=== PATIENT | male | born 1975 | race Caucasian/White ===

== ENCOUNTER → 2020-11-25 | Outpatient (CLI) | payer BC ==
--- NOTE | 2020-11-25 13:59 | CT ---
EXAMINATION TYPE: CT abdomen pelvis w con DATE OF EXAM: 11/25/2020 COMPARISON: NONE HISTORY: 45-year-old male K4 2.9 Umbilical hernia without pain. TECHNIQUE: Contiguous axial scanning of the abdomen and pelvis following administration of 100 ml Iso miguel 300 IV contrast. Delayed images through the kidneys and coronal/sagittal reconstructions perform ed. CT DLP: 3167.3 mGycm Automated exposure control for dose reduction was used. FINDINGS: Heart normal size without pericardial effusion. Some strandy right basilar atelectasis. No pleural ef fusion. Liver mildly enlarged at 18.8 cm. No focal lesion or biliary ductal dilatation. Portal venous system is patent. Gallbladder, adrenal glands, right kidney, and pancreas appear within normal limits. Benign 2.6 cm cortical cyst anterior lower pole left kidney. Additional medial midpole right kidney l esion measuring 1 cm, axial image 42 too small for accurate CT characterization, likely additional ti ny cortical cyst. Spleen borderline in size at 13.1 cm. No dilated small bowel, free fluid, or free air. No mesenteric or retroperitoneal lymphadenopathy. Normal appendix. Oral contrast progressed to the rectum. No significant stool burden. No pericolonic inflammatory change. There is a moderate-sized fatty hernia measuring 4.3 cm wide and 4.7 cm craniocaudal. The abdominal w all defect measures 1.4 cm wide. There is some inflammatory fat stranding just deep to the anterior a bdominal wall superior to the neck of the hernia, reference axial image 56 and sagittal image 84. Bladder incompletely distended. Prostate gland is normal size at 3.7 cm wide. Slightly patulous left internal canal. No abnormal fluid collection in the pelvis or pelvic lymphadenopathy. Bones: Tiny sclerotic focus about both hips suggesting small bone islands. Mild degenerative spurring in both hips. Mild degenerative disc disease L5-S1. Some facet arthropathy L5-S1 also noted with mod erate left neural foraminal stenosis at L5-S1. IMPRESSION: A MODERATE SIZED FATTY UMBILICAL HERNIA MEASURING 4.7 X 4.3 CM. THE NECK OF THE HERNIA MEASURES 1.4 C M WIDE. OF NOTE, THERE IS SOME FOCAL FAT STRANDING JUST DEEP TO THE ABDOMINAL WALL, SUPERIOR TO THE N BETH OF THE HERNIA SUGGESTING SOME NONSPECIFIC INFLAMMATION (REFER TO AXIAL IMAGE 56.
== END | disposition home or self-care (01) ==
LOC: RADCTMAIN 11:14
PROVIDERS: ATTEND Family Medicine
DX: K42.9 Umbilical hernia without obstruction or gangrene (principal)
CPT/HCPCS: 74177; Q9967

== ENCOUNTER 2020-12-10 06:19 | Day surgery (SDC) | payer BC ==
[2020-12-09 09:38] VITALS: BMI 45.5
[2020-12-10] MEDS: ACETAMINOPHEN TAB 500 MG TAB PO PRN ×2 (00:45→06:45)
[~2020-12-10 06:19] MED LIST: DEXAMETHASONE SOD PHOSPHATE 4 MG/ML 1 ML VIAL IV ONE; HEPARIN SODIUM,PORCINE 5,000 UNIT/ML 1 ML VIAL SQ PRN; LACTATED RINGERS 1,000 ML IV SCH; LIDOCAINE 1% (10MG/ML) FOR IV START INTRADERMA PRN; ONDANSETRON 4 MG/2 ML VIAL IVP ONE; SCOPOLAMINE 1.5MG/72HR PATCH TRANSDERM ONE; ceFAZolin 3 GM in SODIUM CHLORIDE 0.9% 100 ML IVPB PRN
[2020-12-10] MEDS ORDERED: HYDROmorphone 0.5 MG/0.5 ML SYRINGE IVP PRN (07:00)
[2020-12-10] MEDS ORDERED: LACTATED RINGERS 1,000 ML IV ONE ×2 (07:10→09:33)
[2020-12-10] MEDS ORDERED: fentaNYL (PF) 50 MCG/ML 2 ML AMP IV ONE (07:33)
[2020-12-10] MEDS ORDERED: MIDAZOLAM 2 MG/2 ML VIAL IV ONE (07:33)
[2020-12-10] MEDS ORDERED: ROPIVACAINE 5 MG/ML 30 ML VIAL ONE (08:45)
[2020-12-10] MEDS ORDERED: SUCCINYLCHOLINE CHLORIDE 100 MG/5 ML SYR IV ONE (08:45)
[2020-12-10] MEDS ORDERED: PROPOFOL 10 MG/ML 20 ML VIAL IV ONE (08:45)
[2020-12-10] MEDS ORDERED: DEXAMETHASONE SOD PHOSPHATE 10 MG/ML 1 ML VIAL ONE (08:45)
[2020-12-10] MEDS ORDERED: ROCURONIUM 10 MG/ML (5 ML VIAL) IV ONE (08:45)
[2020-12-10] MEDS ORDERED: NEOSTIGMINE 1 MG/ML 10 ML VIAL ONE (08:45)
[2020-12-10] MEDS ORDERED: GLYCOPYRROLATE 0.2 MG/ML 2 ML VIAL ONE (08:45)
[2020-12-10] MEDS ORDERED: KETAMINE 10 MG/ML 20 ML VIAL ONE (08:45)
[2020-12-10] MEDS ORDERED: MIDAZOLAM 2 MG/2 ML VIAL ONE (08:45)
[2020-12-10] MEDS ORDERED: fentaNYL (PF) 50 MCG/ML 2 ML AMP ONE (08:45)
[2020-12-10] MEDS ORDERED: KETOROLAC 15 MG/ML 1 ML VIAL ONE (08:45)
[2020-12-10] MEDS ORDERED: LIDOCAINE 1% INJ 10MG/ML (20 ML MDV) ONE (08:45)
--- NOTE | 2020-12-10 09:12 | P.ANPRN ---
Procedure Note - Anesthesia - Nerve Block Performed Bilateral Erector Spinae Single Time Out Performed: Yes Date of Procedure: 12/10/20 Procedure Start Time: 07:26 Procedure Stop Time: 07:38 Location of Patient: PreOp Indication: Acute Post-Operative Pain, Dx/Pain Location, Requested by Surgeon Specifically requested for management of pain by : Uriel Espino Sedation Type: Sedate with meaningful contact maintained Preparation: Sterile Prep Position: Prone Catheter: None Needle Types: [employer] Needle Gauge: 21 Ultrasound used to visualize needle placement: Yes Ultrasound used to observe medication spread: Yes Injectate: 0.5% Ropivacaine (see comment for volume) Blood Aspirated: No Pain Paresthesia on Injection Noted: No Resistance on Injection: Normal Image Stored and Saved: Yes Events: Uneventful and Well Tolerated (60cc 0.25% Ropivacaine)
[2020-12-10] MEDS ORDERED: BUPIVACAIN-EPI 0.5%-1:200,000 30 ML VIAL SQ ONE (09:22)
[2020-12-10 10:05] VITALS: TEMP 97.6
[2020-12-10 10:59] VITALS: RESP 16
--- NOTE | 2020-12-10 11:11 | P.GSHP ---
History of Present Illness H&P Date: 12/10/20 Chief Complaint: Incarcerated umbilical hernia A 45-year-old male who presents today for laparoscopic robotic-assisted repair of incarcerated umbilical hernia. Patient rough rice tender mass at his umbilicus. Past Medical History Past Medical History: No Reported History History of Any Multi-Drug Resistant Organisms: None Reported Past Surgical History: Orthopedic Surgery Additional Past Surgical History / Comment(s): Right ankle surgery X2. Past Anesthesia/Blood Transfusion Reactions: No Reported Reaction Past Psychological History: No Psychological Hx Reported Smoking Status: Former smoker Past Alcohol Use History: None Reported Additional Past Alcohol Use History / Comment(s): Quit smoking 2 weeks ago, smoked for 30 yrs, 2 PPD. Past Drug Use History: None Reported - Past Family History Mother Family Medical History: No Reported History Medications and Allergies Home Medications Medication Instructions Recorded Confirmed Type Chantix(Unknown Dose) 1 tab PO BID 12/09/20 12/09/20 History Acetaminophen Tab [Tylenol] 650 mg PO Q6H #30 tab 12/10/20 Rx Docusate [Colace] 100 mg PO BID #20 capsule 12/10/20 Rx Ibuprofen [Motrin] 600 mg PO Q6HR PRN #40 tab 12/10/20 Rx oxyCODONE HCL [OxyIR] 5 mg PO Q4H PRN 3 Days #18 tab 12/10/20 Rx Allergies Allergy/AdvReac Type Severity Reaction Status Date / Time No Known Allergies Allergy Verified 12/09/20 09:24 Surgical - Exam Vital Signs Temp Pulse Resp BP Pulse Ox 98.1 F 92 20 134/81 95 12/10/20 06:50 12/10/20 06:50 12/10/20 06:50 12/10/20 06:50 12/10/20 06:50 - General well developed, well nourished, no distress - Eyes PERRL - ENT normal pinna - Neck no masses - Respiratory normal expansion - Cardiovascular Rhythm: regular - Abdomen Abdomen: soft, non tender Hernia: umbilical (Incarcerated) Assessment and Plan Plan: incarcerated umbilical hernia. We'll perform laparoscopic robotic-assisted repair.
--- NOTE | 2020-12-10 11:13 | P.OP ---
Date of Procedure: 12/10/20 Preoperative Diagnosis: Incarcerated umbilical hernia Postoperative Diagnosis: Incarcerated umbilical hernia Procedure(s) Performed: Laparoscopic robotic-assisted repair of incarcerated umbilical hernia repair partial omentectomy Anesthesia: SHERICE Surgeon: Uriel Espino Estimated Blood Loss (ml): 5 Pathology: other (Omentum) Condition: stable Disposition: PACU Description of Procedure: The patient was placed on the operating table in the supine position. He received general anesthesia. His abdomen was prepped and draped usual fashion. Using a 5 mm optical trocar under direct visualization the peritoneal cavity was entered in the left upper quadrant. The abdomen was then insufflated. The laparoscope was placed back into the perineal cavity. Next a 8 mm robotic trocar was placed in the left lower quadrant and a 12 mm robotic trocar was placed in the left lateral position. The original 5 mm trocar was exchanged for a 8 mm robotic trocar. The patient's placed in the left side up position. And the patient was undocked the robot. The umbilical hernia was visualized. Using hook cautery the peritoneum over the umbilical hernia was excised. The incarcerated omentum was transected and sent to pathology. The fascial opening was repaired using 0V LOC suture. Next a piece of 11 cm round ventral light ST mesh was placed into the. Cavity and secured with 2 OV lock suture. The patient was undocked the robot. The needles were retrieved. The fascia of the 12 mm trocar site was closed with 0 Ethibond suture. Skin was closed interrupted 3-0 Monocryl suture. Dermabond dressings was applied. Patient top procedure well and was sent to recovery room stable condition.
[2020-12-10 11:51] VITALS: BP 107/69; PULSE 85
== END 2020-12-10 12:24 | disposition home or self-care (01) ==
LOC: OR 06:19
PROVIDERS: ATTEND Surgery
DX: K42.0 Umbilical hernia with obstruction, without gangrene (principal); F17.210 Nicotine dependence, cigarettes, uncomplicated; E66.01 Morbid (severe) obesity due to excess calories; Z68.42 Body mass index [BMI] 45.0-49.9, adult; Z98.890 Other specified postprocedural states; Z79.899 Other long term (current) drug therapy
CPT/HCPCS: 49653; 64999; 76942; 88302; C1781; J2250; J1100 ×2; J2710; J0690; J2405; J2001; J3010; J2795; J1885; J0330; J2704

== ENCOUNTER 2021-01-03 16:50 | Emergency (ER) | payer BC ==
[2021-01-03 17:05] VITALS: BP 137/86; PULSE 111; RESP 18; TEMP 98.6
[2021-01-03] MEDS ORDERED: LIDOCAINE 1% INJ 10MG/ML (20 ML MDV) SQ ONE (17:10)
[2021-01-03] MEDS ORDERED: DIPH,PERTUS(ACELL)TETVAC-LF 0.5 ML VIAL IM ONE (17:20)
[2021-01-03] MEDS ORDERED: BACITRACIN OINT 1 EACH PACKET TOPICAL ONE (17:36)
--- NOTE | 2021-01-03 17:38 | ED ---
Wound/Laceration HPI - General Chief Complaint: Wound/Laceration Stated Complaint: Lt Index Finger Injury Time Seen by Provider: 01/03/21 17:10 Source: patient, RN notes reviewed Mode of arrival: ambulatory Limitations: no limitations - History of Present Illness Initial Comments: 45-year-old male presents emergency Department complaining of right hand l aceration. Patient states she is trying to cut a zip tie states that he cut his right hand by the second digit. Patient has full range of motion no paresthesias is unsure when his last tetanus was. Patient offers no other complaints. - Related Data Home Medications Medication Instructions Recorded Confirmed Chantix(Unknown Dose) 1 tab PO BID 12/09/20 12/09/20 Previous Rx's Medication Instructions Recorded Acetaminophen Tab [Tylenol] 650 mg PO Q6H #30 tab 12/10/20 Docusate [Colace] 100 mg PO BID #20 capsule 12/10/20 Ibuprofen [Motrin] 600 mg PO Q6HR PRN #40 tab 12/10/20 oxyCODONE HCL [OxyIR] 5 mg PO Q4H PRN 3 Days #18 tab 12/10/20 Allergies Allergy/AdvReac Type Severity Reaction Status Date / Time No Known Allergies Allergy Verified 01/03/21 17:05 Review of Systems ROS Statement: Those systems with pertinent positive or pertinent negative responses have been documented in the HPI. ROS Other: All systems not noted in ROS Statement are negative. Past Medical History Past Medical History: No Reported History History of Any Multi-Drug Resistant Organisms: None Reported Past Surgical History: Hernia Repair, Orthopedic Surgery Additional Past Surgical History / Comment(s): Right ankle surgery X2, hernia repair Past Anesthesia/Blood Transfusion Reactions: No Reported Reaction Past Psychological History: No Psychological Hx Reported Smoking Status: Former smoker Past Alcohol Use History: None Reported Past Drug Use History: None Reported - Past Family History Mother Family Medical History: No Reported History General Exam Limitations: no limitations General appearance: alert, in no apparent distress Head exam: Present: atraumatic, normocephalic, normal inspection Neck exam: Present: normal inspection. Absent: tenderness, meningismus, lymphadenopathy Respiratory exam: Present: normal lung sounds bilaterally. Absent: respiratory distress, wheezes, rales, rhonchi, stridor Cardiovascular Exam: Present: regular rate, normal rhythm, normal heart sounds. Absent: systolic murmur, diastolic murmur, rubs, gallop, clicks Extremities exam: Present: other (Right hand over the second MCP region there is a 3 cm flap laceration patient's full strength and full range of motion no tendon involvement) Course Vital Signs 01/03/21 16:59 Temperature 98.6 F Pulse Rate 111 H Respiratory 18 Rate Blood Pressure 137/86 O2 Sat by Pulse 94 L Oximetry Procedures - Laceration Laceration #1 Consent Obtained: verbal consent Indication: laceration Site: hand (Right hand) Size (cm): 3 Description: flap, irregular Depth: simple, single layer Anesthetic Used: lidocaine 1%, without epi Anesthesia Technique: local infiltration Amount (mls): 5 Pre-repair: wound explored, irrigated extensively, deep structures intact Type of Sutures: nylon Size of Sutures: 4-0 Number of Sutures: 7 Technique: simple, interrupted Patient Tolerated Procedure: well, no complications Medical Decision Making - Medical Decision Making Laceration was thoroughly cleaned, no tendon involvement patient full-strength. This was closed using sutures return parameters were discussed. Disposition Clinical Impression: Laceration of right hand Disposition: HOME SELF-CARE Condition: Stable Instructions (If sedation given, give patient instructions): Care For Your Stitches (ED), Laceration (ED) Additional Instructions: Have Sutures removed in 10 days.Please return to the Emergency Department if symptoms worsen or any other concerns. Is patient prescribed a controlled substance at d/c from ED?: No Referrals: Khris Goff [Primary Care Provider] - 1-2 days Time of Disposition: 17:37
== END 2021-01-03 18:00 | disposition home or self-care (01) ==
LOC: EC 16:50
DX: S61.210A Laceration without foreign body of right index finger without damage to nail, initial encounter (principal); Z87.891 Personal history of nicotine dependence; Z79.1 Long term (current) use of non-steroidal anti-inflammatories (NSAID); W26.8XXA Contact with other sharp object(s), not elsewhere classified, initial encounter
CPT/HCPCS: 90715; 99283; 90471; 12002; J2001

== ENCOUNTER 2021-02-02 08:09 | Emergency (ER) | payer OTHER, BC ==
[2021-02-02 08:16] LABS: Glucose,Whole Blood 140 mg/dL (75-99)
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
[2021-02-02 08:32] LABS: Basophils # (A) 0.1 k/uL (0-0.2); Basophils % (A) 1 %; Eosinophils # (A) 0.3 k/uL (0-0.7); Eosinophils % (A) 2 %; HCT 50.9 % (39.0-53.0); HGB 17.1 gm/dL (13.0-17.5); Lymphocytes # (A) 2.9 k/uL (1.0-4.8); Lymphocytes % (A) 23 %; MCH 27.7 pg (25.0-35.0); MCHC 33.7 g/dL (31.0-37.0); MCV 82.3 fL (80.0-100.0); Mean Platelet Volume 8.5; Monocytes # (A) 0.8 k/uL (0-1.0); Monocytes % (A) 6 %; Neutrophils # (A) 7.8 k/uL (1.3-7.7); Neutrophils % (A) 64 %; Platelet Count 249 k/uL (150-450); RBC 6.18 m/uL (4.30-5.90); WBC 12.2 k/uL (3.8-10.6)
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
[2021-02-02 08:43] LABS: INR 0.9 (<1.2); Prothrombin Time 9.8 sec (9.0-12.0)
[2021-02-02 08:45] LABS: ALT 33 U/L (4-49); AST 27 U/L (17-59); African American GFR (CKD) >90 (>60 ml/min/1.73 sqM); Albumin 4.5 g/dL (3.5-5.0); Alcohol <10 mg/dL; Alkaline Phosphatase 94 U/L (38-126); Anion Gap 6 mmol/L; Blood Urea Nitrogen 17 mg/dL (9-20); Carbon Dioxide 28 mmol/L (22-30); Chloride 107 mmol/L (98-107); Creatine Kinase 184 U/L (55-170); Glucose 148 mg/dL (74-99); Non-African American GFR(CKD) >90 (>60 ml/min/1.73 sqM); Sodium 141 mmol/L (137-145); Total Bilirubin 0.4 mg/dL (0.2-1.3); Total Protein 8.6 g/dL (6.3-8.2)
[2021-02-02 08:55] LABS: Potassium 6.2 mmol/L (3.5-5.1)
[2021-02-02 09:02] LABS: Partial Thromboplastin Time 21.8 sec (22.0-30.0)
[2021-02-02] MEDS ORDERED: SODIUM CHLORIDE 0.9% 1,000 ML IV STA (09:16)
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
== END 2021-02-02 11:35 | disposition home or self-care (01) ==
LOC: EC 08:09
DX: S16.1XXA Strain of muscle, fascia and tendon at neck level, initial encounter (principal); S50.01XA Contusion of right elbow, initial encounter; Z87.891 Personal history of nicotine dependence; V89.2XXA Person injured in unspecified motor-vehicle accident, traffic, initial encounter; Y92.410 Unspecified street and highway as the place of occurrence of the external cause
CPT/HCPCS: 36415; 86900; 86901; 80053; 82550; 84132; 84484; 85025; 85610; 85730; 86850; 80320; 72170; 73080; 71045; 72125; 70450; 71260; 74177; 99284; 96360; Q9967

== ENCOUNTER 2021-03-16 17:15 | Emergency (ER) | payer BC ==
[2021-03-16 17:58] VITALS: TEMP 98.8
--- NOTE | 2021-03-16 19:35 | ED ---
URI HPI - General Chief Complaint: Upper Respiratory Infection Stated Complaint: sore throat/coughing up blood Time Seen by Provider: 03/16/21 19:09 Source: patient, RN notes reviewed Mode of arrival: ambulatory Limitations: no limitations - History of Present Illness Initial Comments: This is a 45-year-old male presents emergency from chief complaint cough congestion. Patient states she's been sick for 10 days. Patient states is productive cough. Patient is a former smoker quit in November of this year. Patient denies any history of COPD asthma. Patient states is mild nasal congestion ALLERGYissues.Deniesfeversorchills - Related Data Previous Rx's Medication Instructions Recorded Cyclobenzaprine [Flexeril] 10 mg PO TID #14 tab 02/02/21 Ibuprofen 800 mg PO Q6HR PRN #20 tablet 02/02/21 Albuterol Sulfate [Proair Hfa] 1 - 2 puff INHALATION Q4HR PRN #1 03/16/21 inhaler Azithromycin [Zithromax Z-pack (6 0 mg PO DIRECTED #1 pack 03/16/21 tabs)] predniSONE 50 mg PO DAILY #5 tab 03/16/21 Allergies Allergy/AdvReac Type Severity Reaction Status Date / Time No Known Allergies Allergy Verified 03/16/21 17:58 Review of Systems ROS Statement: Those systems with pertinent positive or pertinent negative responses have been documented in the HPI. ROS Other: All systems not noted in ROS Statement are negative. Past Medical History Past Medical History: No Reported History History of Any Multi-Drug Resistant Organisms: None Reported Past Surgical History: Hernia Repair, Orthopedic Surgery Additional Past Surgical History / Comment(s): Right ankle surgery X2, hernia repair Past Anesthesia/Blood Transfusion Reactions: No Reported Reaction Past Psychological History: No Psychological Hx Reported Smoking Status: Former smoker Past Alcohol Use History: None Reported Past Drug Use History: None Reported - Past Family History Mother Family Medical History: No Reported History General Exam Limitations: no limitations General appearance: alert, in no apparent distress Head exam: Present: atraumatic, normocephalic, normal inspection Eye exam: Present: normal appearance, PERRL, EOMI. Absent: scleral icterus, conjunctival injection, periorbital swelling ENT exam: Present: normal exam, normal oropharynx, mucous membranes moist Neck exam: Present: normal inspection, full ROM. Absent: tenderness, meningismus, lymphadenopathy Respiratory exam: Present: wheezes. Absent: respiratory distress, rales, rhonchi, stridor Cardiovascular Exam: Present: regular rate, normal rhythm, normal heart sounds. Absent: systolic murmur, diastolic murmur, rubs, gallop, clicks Course Vital Signs 03/16/21 17:54 Temperature 98.8 F Pulse Rate 94 Respiratory 16 Rate Blood Pressure 132/91 O2 Sat by Pulse 95 Oximetry Medical Decision Making - Medical Decision Making 45-year-old male presented from for cough congestion. Patient's been sick for almost 2 weeks. Patient does have some mild wheezing was a former smoker. Patient x-ray, COVID-19 test is negative. Patient refused for mild COPD exacerbation, acute bronchitis. Patient discharged stable condition return parameters discussed. - Lab Data Lab Results 03/16/21 Range/Units 19:32 Coronavirus (PCR) Not Detected (Not Detectd) Disposition Clinical Impression: Bronchitis Disposition: HOME SELF-CARE Condition: Stable Instructions (If sedation given, give patient instructions): Upper Respiratory Infection (ED) Additional Instructions: Please return to the Emergency Department if symptoms worsen or any other concerns. Prescriptions: predniSONE 50 mg PO DAILY #5 tab Albuterol Sulfate [Proair Hfa] 1 - 2 puff INHALATION Q4HR PRN #1 inhaler PRN Reason: difficulty in breathing Azithromycin [Zithromax Z-pack (6 tabs)] 0 mg PO DIRECTED #1 pack Is patient prescribed a controlled substance at d/c from ED?: No Referrals: Khris Goff [Primary Care Provider] - 1-2 days Time of Disposition: 20:19
--- NOTE | 2021-03-16 19:46 | XR ---
EXAMINATION TYPE: XR chest 2V DATE OF EXAM: 03/16/2021 COMPARISON: 02/02/2021 HISTORY: Cough TECHNIQUE: FINDINGS: There is no heart failure nor confluent pneumonic infiltrate. Costophrenic angles are clear . Bony thorax is intact. IMPRESSION: No active cardiopulmonary disease. Inspiration decreased compared to old exam.
[2021-03-16 20:49] VITALS: BP 116/80; PULSE 92; RESP 18
== END 2021-03-16 20:49 | disposition home or self-care (01) ==
LOC: EC 17:15
DX: J40 Bronchitis, not specified as acute or chronic (principal); Z20.822 Contact with and (suspected) exposure to COVID-19; Z87.891 Personal history of nicotine dependence
CPT/HCPCS: 71046; 87635; 99283

== ENCOUNTER 2022-08-26 19:52 | Observation (INO) | payer BC ==
[2022-08-26] MEDS ORDERED: ONDANSETRON 4 MG/2 ML VIAL IVP STA (21:35)
[2022-08-26] MEDS ORDERED: SODIUM CHLORIDE 0.9% 500 ML 500 ML IV STA (21:35)
[2022-08-26] MEDS ORDERED: SODIUM CHLORIDE 0.9% 1,000 ML IV STA ×3 (21:35→22:31)
--- NOTE | 2022-08-26 21:36 | ED ---
Recheck HPI - General Chief Complaint: Recheck/Abnormal Lab/Rx Stated Complaint: Hyperglycemia Time Seen by Provider: 08/26/22 21:24 Source: patient, RN notes reviewed, old records reviewed Mode of arrival: ambulatory - History of Present Illness Initial Comments: This is a 46-year-old male to the emergency department for evaluation. Patient presents for weakness elevated blood sugar persistently elevated blood sugar decreased hydration increased urinary output not feeling well. MD Complaint: wound re-check, abnormal lab (elevated blood sugar) -: unknown Returns Today for: Called Because of Abnormal Lab/Test Symptoms Since Prior Visit: no new symptoms Context: called for abnormal lab result Associated Symptoms: malaise Treatments Prior to Arrival: IV/IO, other (0) - Related Data Home Medications Medication Instructions Recorded Confirmed diphenhydrAMINE [Benadryl] 25 mg PO DAILY PRN 08/26/22 08/26/22 predniSONE [Deltasone] 10 mg PO DAILY 08/26/22 08/26/22 Allergies Allergy/AdvReac Type Severity Reaction Status Date / Time No Known Allergies Allergy Verified 08/26/22 22:26 Review of Systems ROS Statement: Those systems with pertinent positive or pertinent negative responses have been documented in the HPI. ROS Other: All systems not noted in ROS Statement are negative. Past Medical History Past Medical History: No Reported History History of Any Multi-Drug Resistant Organisms: None Reported Past Surgical History: Hernia Repair, Orthopedic Surgery Additional Past Surgical History / Comment(s): Right ankle surgery X2, hernia repair Past Anesthesia/Blood Transfusion Reactions: No Reported Reaction Past Psychological History: No Psychological Hx Reported Smoking Status: Former smoker Past Alcohol Use History: None Reported Past Drug Use History: None Reported - Past Family History Mother Family Medical History: No Reported History General Exam General appearance: alert, in no apparent distress Head exam: Present: atraumatic, normocephalic, normal inspection Eye exam: Present: normal appearance, PERRL, EOMI. Absent: scleral icterus, conjunctival injection, periorbital swelling ENT exam: Present: normal exam, mucous membranes moist Neck exam: Present: normal inspection. Absent: tenderness, meningismus, lymphadenopathy Respiratory exam: Present: normal lung sounds bilaterally. Absent: respiratory distress, wheezes, rales, rhonchi, stridor Cardiovascular Exam: Present: regular rate, normal rhythm, normal heart sounds. Absent: systolic murmur, diastolic murmur, rubs, gallop, clicks GI/Abdominal exam: Present: soft, normal bowel sounds. Absent: distended, tenderness, guarding, rebound, rigid Extremities exam: Present: normal inspection, full ROM, normal capillary refill. Absent: tenderness, pedal edema, joint swelling, calf tenderness Back exam: Present: normal inspection Neurological exam: Present: alert, oriented X3, CN II-XII intact Psychiatric exam: Present: normal affect, normal mood Skin exam: Present: warm, dry, intact, normal color. Absent: rash Course Vital Signs 08/26/22 08/26/22 20:36 22:04 Temperature 98.1 F Pulse Rate 100 99 Respiratory 18 17 Rate Blood Pressure 133/104 140/94 O2 Sat by Pulse 94 L 94 L Oximetry - Reevaluation(s) Reevaluation #1: 08/26/22 22:44 Medical records reviewed Reevaluation #2: 08/26/22 22:44 Patient informed results and questions answered Medical Decision Making - Medical Decision Making 46 male to the emergency department for evaluation new-onset diabetes. Patient will be admitted for IV hydration blood sugar control and starting treatment for diabetes - Lab Data Result diagrams: 08/26/22 21:41 08/26/22 21:41 Lab Results 08/26/22 08/26/22 08/26/22 Range/Units 21:41 21:41 21:41 WBC 21.8 H (3.8-10.6) k/uL RBC 5.64 (4.30-5.90) m/uL Hgb 16.1 (13.0-17.5) gm/dL Hct 48.1 (39.0-53.0) % MCV 85.2 (80.0-100.0) fL MCH 28.6 (25.0-35.0) pg MCHC 33.5 (31.0-37.0) g/dL RDW 13.4 (11.5-15.5) % Plt Count 262 (150-450) k/uL MPV 9.9 Neutrophils % 72 % Lymphocytes % 21 % Monocytes % 4 % Eosinophils % 0 % Basophils % 0 % Neutrophils # 15.7 H (1.3-7.7) k/uL Lymphocytes # 4.6 (1.0-4.8) k/uL Monocytes # 0.9 (0-1.0) k/uL Eosinophils # 0.1 (0-0.7) k/uL Basophils # 0.1 (0-0.2) k/uL VBG pH (7.31-7.41) VBG pCO2 (37-51) mmHg VBG HCO3 (24-28) mmol/L Sodium 135 L (137-145) mmol/L Potassium 4.6 (3.5-5.1) mmol/L Chloride 99 (98-107) mmol/L Carbon Dioxide 21 L (22-30) mmol/L Anion Gap 15 mmol/L BUN 42 H (9-20) mg/dL Creatinine 0.96 (0.66-1.25) mg/dL Est GFR (CKD-EPI)AfAm >90 (>60 ml/min/1.73 sqM) Est GFR (CKD-EPI)NonAf >90 (>60 ml/min/1.73 sqM) Glucose 573 H* (74-99) mg/dL Plasma Lactic Acid Andrea (0.7-2.0) mmol/L Calcium 9.5 (8.4-10.2) mg/dL Phosphorus 6.0 H (2.5-4.5) mg/dL Magnesium 2.0 (1.6-2.3) mg/dL Total Bilirubin 0.9 (0.2-1.3) mg/dL AST 30 (17-59) U/L ALT 39 (4-49) U/L Alkaline Phosphatase 121 (38-126) U/L Troponin I (0.000-0.034) ng/mL Total Protein 7.9 (6.3-8.2) g/dL Albumin 4.3 (3.5-5.0) g/dL Urine Color Light Yellow Urine Appearance Clear (Clear) Urine pH 5.0 (5.0-8.0) Ur Specific Bradley 1.031 (1.001-1.035) Urine Protein Trace H (Negative) Urine Glucose (UA) 4+ H (Negative) Urine Ketones 1+ H (Negative) Urine Blood Small H (Negative) Urine Nitrite Negative (Negative) Urine Bilirubin Negative (Negative) Urine Urobilinogen <2.0 (<2.0) mg/dL Ur Leukocyte Esterase Negative (Negative) Urine RBC <1 (0-5) /hpf Urine WBC 2 (0-5) /hpf Granular Casts 5 (0) /lpf Urine Mucus Rare H (None) /hpf 08/26/22 08/26/22 08/26/22 Range/Units 21:41 21:41 21:45 WBC (3.8-10.6) k/uL RBC (4.30-5.90) m/uL Hgb (13.0-17.5) gm/dL Hct (39.0-53.0) % MCV (80.0-100.0) fL MCH (25.0-35.0) pg MCHC (31.0-37.0) g/dL RDW (11.5-15.5) % Plt Count (150-450) k/uL MPV Neutrophils % % Lymphocytes % % Monocytes % % Eosinophils % % Basophils % % Neutrophils # (1.3-7.7) k/uL Lymphocytes # (1.0-4.8) k/uL Monocytes # (0-1.0) k/uL Eosinophils # (0-0.7) k/uL Basophils # (0-0.2) k/uL VBG pH 7.42 H (7.31-7.41) VBG pCO2 40 (37-51) mmHg VBG HCO3 25 (24-28) mmol/L Sodium (137-145) mmol/L Potassium (3.5-5.1) mmol/L Chloride (98-107) mmol/L Carbon Dioxide (22-30) mmol/L Anion Gap mmol/L BUN (9-20) mg/dL Creatinine (0.66-1.25) mg/dL Est GFR (CKD-EPI)AfAm (>60 ml/min/1.73 sqM) Est GFR (CKD-EPI)NonAf (>60 ml/min/1.73 sqM) Glucose (74-99) mg/dL Plasma Lactic Acid Andrea 2.5 H* (0.7-2.0) mmol/L Calcium (8.4-10.2) mg/dL Phosphorus (2.5-4.5) mg/dL Magnesium (1.6-2.3) mg/dL Total Bilirubin (0.2-1.3) mg/dL AST (17-59) U/L ALT (4-49) U/L Alkaline Phosphatase (38-126) U/L Troponin I <0.012 (0.000-0.034) ng/mL Total Protein (6.3-8.2) g/dL Albumin (3.5-5.0) g/dL Urine Color Urine Appearance (Clear) Urine pH (5.0-8.0) Ur Specific Bradley (1.001-1.035) Urine Protein (Negative) Urine Glucose (UA) (Negative) Urine Ketones (Negative) Urine Blood (Negative) Urine Nitrite (Negative) Urine Bilirubin (Negative) Urine Urobilinogen (<2.0) mg/dL Ur Leukocyte Esterase (Negative) Urine RBC (0-5) /hpf Urine WBC (0-5) /hpf Granular Casts (0) /lpf Urine Mucus (None) /hpf - EKG Data -: EKG Interpreted by Me (EKG is sinus 87 MS 134 QRS 90 QTC 419) Disposition Clinical Impression: New onset type 2 diabetes mellitus, Hyperglycemia, Weakness Disposition: ADMITTED IP TO THIS [facility] Condition: Good Is patient prescribed a controlled substance at d/c from ED?: No Referrals: Helder Lopez MD [Primary Care Provider] - 1-2 days Time of Disposition: 22:45
[2022-08-26 21:54] LABS: Basophils # (A) 0.1 k/uL (0-0.2); Basophils % (A) 0 %; Eosinophils # (A) 0.1 k/uL (0-0.7); Eosinophils % (A) 0 %; HCT 48.1 % (39.0-53.0); HGB 16.1 gm/dL (13.0-17.5); Lymphocytes # (A) 4.6 k/uL (1.0-4.8); Lymphocytes % (A) 21 %; MCH 28.6 pg (25.0-35.0); MCHC 33.5 g/dL (31.0-37.0); MCV 85.2 fL (80.0-100.0); Mean Platelet Volume 9.9; Monocytes # (A) 0.9 k/uL (0-1.0); Monocytes % (A) 4 %; Neutrophils # (A) 15.7 k/uL (1.3-7.7); Neutrophils % (A) 72 %; Platelet Count 262 k/uL (150-450); RBC 5.64 m/uL (4.30-5.90); RDW 13.4 % (11.5-15.5); WBC 21.8 k/uL (3.8-10.6)
[2022-08-26 21:57] LABS: Appearance,Urine Clear (Clear); Bilirubin,Urine Negative (Negative); Blood,Urine Small (Negative); Color,Urine Light Yellow; Glucose,Urine (UA) 4+ (Negative); Granular Casts,Urine 5 /lpf (0); Ketones,Urine 1+ (Negative); Leukocyte Esterase,Urine Negative (Negative); Mucus,Urine Rare /hpf; Nitrite,Urine Negative (Negative); Protein,Urine Trace (Negative); RBC,Urine <1 /hpf (0-5); Specific Gravity,Urine 1.031 (1.001-1.035); Urobilinogen,Urine <2.0 mg/dL (<2.0); WBC,Urine 2 /hpf (0-5)
[2022-08-26 22:10] LABS: VBG PH 7.42 (7.31-7.41)
[2022-08-26 22:17] LABS: ALT 39 U/L (4-49); AST 30 U/L (17-59); African American GFR (CKD) >90 (>60 ml/min/1.73 sqM); Albumin 4.3 g/dL (3.5-5.0); Alkaline Phosphatase 121 U/L (38-126); Anion Gap 15 mmol/L; Blood Urea Nitrogen 42 mg/dL (9-20); Calcium 9.5 mg/dL (8.4-10.2); Carbon Dioxide 21 mmol/L (22-30); Chloride 99 mmol/L (98-107); Non-African American GFR(CKD) >90 (>60 ml/min/1.73 sqM); Potassium 4.6 mmol/L (3.5-5.1); Sodium 135 mmol/L (137-145); Total Bilirubin 0.9 mg/dL (0.2-1.3); Total Protein 7.9 g/dL (6.3-8.2)
[2022-08-26 22:23] LABS: Glucose 573 mg/dL (74-99)
[2022-08-26] MEDS ORDERED: INSULIN REGULAR 100 UNIT/ML VIAL (IV) IV ONE (22:31)
[2022-08-26] MEDS ORDERED: INSULIN REGULAR 100 UNIT/ML VIAL (IM/SQ) SQ ONE (22:31)
[2022-08-26] MEDS ORDERED: SODIUM CHLORIDE 0.9% 1,000 ML IV ONE (22:40)
[2022-08-27 00:21] LABS: Glucose,Whole Blood 376 mg/dL (70-110)
[2022-08-27] MEDS ORDERED: DEXTROSE 50% SYRINGE 50 ML IVP PRN ×2 (00:21)
[2022-08-27] MEDS ORDERED: INSULIN ASPART (NovoLOG) 100 UNIT/ML VIAL SQ SCH (07:30)
[2022-08-27 07:48] LABS: Glucose,Whole Blood 324 mg/dL (70-110)
[2022-08-27 07:56] VITALS: RESP 18; TEMP 97.8
[2022-08-27 12:11] LABS: Glucose,Whole Blood 312 mg/dL (70-110)
[2022-08-27] MEDS ORDERED: LINAGLIPTIN 5 MG TABLET PO SCH (12:30)
[2022-08-27 13:00] VITALS: BP 127/86; PULSE 92
--- NOTE | 2022-08-27 13:25 | P.HPIM ---
History of Present Illness 46-year-old male came with symptoms of urinary frequency polyuria polydipsia, blurry vision has been going on for a few days and patient was seen in [facility] Where They Gave IV Insulin and Was Sent Home and Was Never Prescribed Any Medications for Diabetes Mellitus and Patient Was Asked to Seek Primary Care Physician Patient Had Continued Elevation of His Blood Sugars Because of Which Patient Came Back to the Hospital Was Given IV Insulin Sliding Scale Insulin Patient Blood Sugars Weren't 600s without Any Ketoacidosis. Patient Does Have 4+ Blood Sugars in the Urine. Patient Is Bit Hyponatremic Volume Depleted with Elevated Lactic Acid Secondary to Dehydration from Polyuria. Patient Is Taking Steroids and More Home Has Been Taking Steroids for A Few Weeks Patient Was Prescribed Steroids for Poison Maya. Patient's hemoglobin A1c is 10.5. REVIEW OF SYSTEMS: CONSTITUTIONAL: No fever, no malaise, no fatigue. HEENT: No recent visual problems or hearing problems. Denied any sore throat. CARDIOVASCULAR: No chest pain, orthopnea, PND, no palpitations, no syncope. PULMONARY: No shortness of breath, no cough, no hemoptysis. GASTROINTESTINAL: No diarrhea, no nausea, no vomiting, no abdominal pain. NEUROLOGICAL: No headaches, no weakness, no numbness. HEMATOLOGICAL: Denies any bleeding or petechiae. GENITOURINARY: Denies any burning micturition, frequency, or urgency. MUSCULOSKELETAL/RHEUMATOLOGICAL: Denies any joint pain, swelling, or any muscle pain. ENDOCRINE: As mentioned in HPI The rest of the 14-point review of systems is negative. PHYSICAL EXAMINATION: GENERAL: The patient is alert and oriented x3, not in any acute distress. Well developed, well nourished. HEENT: Pupils are round and equally reacting to light. EOMI. No scleral icterus. No conjunctival pallor. Normocephalic, atraumatic. No pharyngeal erythema. No thyromegaly. CARDIOVASCULAR: S1 and S2 present. No murmurs, rubs, or gallops. PULMONARY: Chest is clear to auscultation, no wheezing or crackles. ABDOMEN: Soft, nontender, nondistended, normoactive bowel sounds. No palpable organomegaly. MUSCULOSKELETAL: No joint swelling or deformity. EXTREMITIES: No cyanosis, clubbing, or pedal edema. NEUROLOGICAL: Gross neurological examination did not reveal any focal deficits. SKIN: No rashes. Assessment and plan -The onset type 2 diabetes mellitus: Patient systemic steroids will be discussed and patient is advised about lightheadedness that can happen secondary to adrenal insufficiency from prolonged use of steroids and if patient gets lightheaded and if his blood pressure goes patient will come back to the [facility] p[facility] or go to PCP. Considering that the highly elevated blood sugars and patient is on lower dose of for prednisone prednisone is being discontinued at this time patient's blood sugars are expected to stay for Couple days. Patient will be referred to consumer educator, patient will be given prescription for glucometer and patient was asked to test her blood sugars twice a day. Patient will be discharged on metformin find it twice a day dose of which need to be increased and Linagliptan, patient probably will benefit from SGLT , new or hypoglycemic agents. Patient will be referred to endocrinology as well. Dietary counseling weight loss counseling was provided Hyperleukocytosis secondary to elevated blood sugars and systemic steroids -Lactic acidosis and blurry vision secondary to increased osmolality secondary to hyperglycemia, polyuria leading to dehydration patient received IV fluids overnight. Patient will be discharged today Past Medical History Past Medical History: No Reported History History of Any Multi-Drug Resistant Organisms: None Reported Past Surgical History: Hernia Repair, Orthopedic Surgery Additional Past Surgical History / Comment(s): Right ankle surgery X2, hernia repair Past Anesthesia/Blood Transfusion Reactions: No Reported Reaction Past Psychological History: No Psychological Hx Reported Smoking Status: Former smoker Past Alcohol Use History: None Reported Past Drug Use History: None Reported - Past Family History Mother Family Medical History: No Reported History Medications and Allergies Home Medications Medication Instructions Recorded Confirmed Type Ibuprofen [Motrin] 600 mg PO Q8HR #20 tab 08/26/22 Rx diphenhydrAMINE [Benadryl] 25 mg PO DAILY PRN 08/26/22 08/26/22 History Linagliptin [Tradjenta] 5 mg PO DAILY #30 tab 08/27/22 Rx metFORMIN HCL [Glucophage] 500 mg PO BID #60 tab 08/27/22 Rx Allergies Allergy/AdvReac Type Severity Reaction Status Date / Time No Known Allergies Allergy Verified 08/26/22 22:26 Physical Exam Vitals: Vital Signs Temp Pulse Resp BP Pulse Ox 08/27/22 12:58 97.8 F 92 18 127/86 95 08/27/22 11:12 90 18 137/92 98 08/27/22 08:00 90 18 08/27/22 07:00 97.8 F 92 18 137/87 94 L 08/27/22 00:21 98.0 F 93 16 137/88 94 L 08/26/22 23:00 90 16 128/79 94 L 08/26/22 22:04 99 17 140/94 94 L 08/26/22 20:36 98.1 F 100 18 133/104 94 L Intake and Output 08/26/22 08/27/22 08/27/22 22:59 06:59 14:59 Other: Weight 145.15 kg Results CBC & Chem 7: 08/26/22 21:41 08/26/22 21:41 Labs: Abnormal Lab Results - Last 24 Hours (Table) 08/26/22 08/26/22 08/26/22 Range/Units 21:41 21:41 21:41 WBC 21.8 H (3.8-10.6) k/uL Neutrophils # 15.7 H (1.3-7.7) k/uL VBG pH (7.31-7.41) Sodium 135 L (137-145) mmol/L Carbon Dioxide 21 L (22-30) mmol/L BUN 42 H (9-20) mg/dL Glucose 573 H* (74-99) mg/dL POC Glucose (mg/dL) (70-110) mg/dL Hemoglobin A1c (0.0-6.0) % Plasma Lactic Acid Andrea (0.7-2.0) mmol/L Phosphorus 6.0 H (2.5-4.5) mg/dL Urine Protein Trace H (Negative) Urine Glucose (UA) 4+ H (Negative) Urine Ketones 1+ H (Negative) Urine Blood Small H (Negative) Urine Mucus Rare H (None) /hpf 08/26/22 08/26/22 08/27/22 Range/Units 21:41 21:45 00:18 WBC (3.8-10.6) k/uL Neutrophils # (1.3-7.7) k/uL VBG pH 7.42 H (7.31-7.41) Sodium (137-145) mmol/L Carbon Dioxide (22-30) mmol/L BUN (9-20) mg/dL Glucose (74-99) mg/dL POC Glucose (mg/dL) 376 H (70-110) mg/dL Hemoglobin A1c (0.0-6.0) % Plasma Lactic Acid Andrea 2.5 H* (0.7-2.0) mmol/L Phosphorus (2.5-4.5) mg/dL Urine Protein (Negative) Urine Glucose (UA) (Negative) Urine Ketones (Negative) Urine Blood (Negative) Urine Mucus (None) /hpf 08/27/22 08/27/22 08/27/22 Range/Units 00:27 00:27 07:46 WBC (3.8-10.6) k/uL Neutrophils # (1.3-7.7) k/uL VBG pH (7.31-7.41) Sodium (137-145) mmol/L Carbon Dioxide (22-30) mmol/L BUN (9-20) mg/dL Glucose (74-99) mg/dL POC Glucose (mg/dL) 324 H (70-110) mg/dL Hemoglobin A1c 10.7 H (0.0-6.0) % Plasma Lactic Acid Andrea 2.7 H* (0.7-2.0) mmol/L Phosphorus (2.5-4.5) mg/dL Urine Protein (Negative) Urine Glucose (UA) (Negative) Urine Ketones (Negative) Urine Blood (Negative) Urine Mucus (None) /hpf 08/27/22 Range/Units 12:09 WBC (3.8-10.6) k/uL Neutrophils # (1.3-7.7) k/uL VBG pH (7.31-7.41) Sodium (137-145) mmol/L Carbon Dioxide (22-30) mmol/L BUN (9-20) mg/dL Glucose (74-99) mg/dL POC Glucose (mg/dL) 312 H (70-110) mg/dL Hemoglobin A1c (0.0-6.0) % Plasma Lactic Acid Andrea (0.7-2.0) mmol/L Phosphorus (2.5-4.5) mg/dL Urine Protein (Negative) Urine Glucose (UA) (Negative) Urine Ketones (Negative) Urine Blood (Negative) Urine Mucus (None) /hpf
--- NOTE | 2022-08-31 05:58 | CDI ---
Documentation Clarification Form Date: 08/31/22 From: Loretta Sexton Admit Date: 08/26/2022 10:40:00 PM Patient Name: Vik Amaya Visit Number: [id number] Discharge Date: 08/27/2022 01:00:00 PM ATTENTION: The Clinical Documentation Specialists (CDI) and [facility] Coding Staff appreciate your assistance in clarifying documentation. Please respond to the clarification below the line at the bottom and electronically sign. The CDI & [facility] Coding staff will review the response and follow-up if needed. Please note: Queries are made part of the Legal Health Record. If you have any questions, please contact the author of this message via ITS. Dr. Iona Zheng, Patient has a documented BMI of 45.9 in the nursing section. Additional clarification is requested. History/Risk Factors: none Clinical Indicators: New T2DM w lactic acidosis, blurry vision, polyuria leading to dehydration. BMI of 45.9. Patients weight is 145.15 kg Patients height is 5ft 10 in Calculated BMI is 45.9 Diagnostic tests: A1c 10.7, Glucose 573 Treatments: Humulin R IV, Insulin NovoLOG sliding scale protocal, Linagliptin 5 mg po daily, Metformin HCL 500 mg PO BID Referred to endocrinology, dietary counseling, weight loss counseling provided Please clarify if patients BMI indicates an additional diagnosis: [ ] Overweight [ ] Obesity, Class 1 [ x ] Obesity, Class 2 [ ] Morbid (Extreme) (severe) obesity [ ] No additional diagnosis/not clinically significant [ ] Other, please specify ____ [ ] Unable to determine Reference: NIH Classification for BMI Overweight BMI 25-29.9 Obesity (Class 1) BMI 30-34.9 Obesity (Class 2) BMI 35-39.9 Morbid obesity (Class 3/Extreme/severe) BMI = or >40 MTDD
== END 2022-08-27 13:00 | disposition home or self-care (01) ==
LOC: EC 19:52 → 4SSUR 22:40 → INTOOBSV 22:40 → 4SSUR 08-27 00:10 → UNDODISIN 08-27 13:00
PROVIDERS: ADMIT Hospitalist; ATTEND Hospitalist
DX: E11.65 Type 2 diabetes mellitus with hyperglycemia (principal); E87.1 Hypo-osmolality and hyponatremia; E86.0 Dehydration; E87.20 Acidosis, unspecified; E66.8 Other obesity; Z68.42 Body mass index [BMI] 45.0-49.9, adult; Z79.52 Long term (current) use of systemic steroids; Z87.891 Personal history of nicotine dependence; Z98.890 Other specified postprocedural states; Z71.3 Dietary counseling and surveillance
CPT/HCPCS: 96361 ×2; 96374; 99285; 36415; 93005; 80053; 82803; 82009; 83605 ×2; 83735; 84100; 84484; 85025; 81001; 83036; G0378 ×2; J2405

== ENCOUNTER → 2022-10-27 | Outpatient (CLI) | payer BC ==
[2022-10-27 11:21] LABS: ALT 34 U/L (4-49); AST 26 U/L (17-59); African American GFR (CKD) >90 (>60 ml/min/1.73 sqM); Albumin 4.3 g/dL (3.5-5.0); Albumin/Globulin Ratio 1.2; Alkaline Phosphatase 64 U/L (38-126); Anion Gap 8 mmol/L; Blood Urea Nitrogen 16 mg/dL (9-20); Calcium 9.3 mg/dL (8.4-10.2); Carbon Dioxide 25 mmol/L (22-30); Chloride 108 mmol/L (98-107); Globulin 3.5 g/dL; Glucose 118 mg/dL (74-99); Non-African American GFR(CKD) >90 (>60 ml/min/1.73 sqM); Potassium 4.5 mmol/L (3.5-5.1); Sodium 141 mmol/L (137-145); Total Bilirubin 0.6 mg/dL (0.2-1.3); Total Protein 7.8 g/dL (6.3-8.2)
--- NOTE | 2022-10-27 15:24 | CT ---
EXAMINATION TYPE: CT abdomen pelvis w con DATE OF EXAM: 10/27/2022 COMPARISON: 02/02/2021 HISTORY: 47-year-old male R10.814, LLQ tenderness, burning. Hx umbilical hernia repair. TECHNIQUE: Contiguous axial scanning of the abdomen and pelvis following administration of 100 ml Iso miguel 300 IV contrast. Delayed images through the kidneys and coronal/sagittal reconstructions perform ed. CT DLP: 2388.40 mGycm Automated exposure control for dose reduction was used. FINDINGS: Heart upper limits of normal in size without pericardial effusion. Some hazy dependent atel ectasis. No pleural effusion. Liver mildly enlarged at 19.6 cm. There may be mild fatty infiltration. Suspect an area of greater fo mili fat anterior falciform ligament. Otherwise, no focal liver lesion. Portal venous system is patent . No blurry ductal dilatation. Gallbladder, adrenal glands, right kidney, spleen, and pancreas within normal limits. A couple benign cortical cysts left kidney measuring 1.3 cm and 2.7 cm. Symmetric uptake and excretio n of contrast from both kidneys though somewhat delayed opacification of the collecting systems. Xiomara elate with kidney function to exclude underlying acute kidney injury. Some prominent nodularity left periaortic region measuring up to 1.4 cm remains unchanged. Possibly r eactive/chronic postinflammatory nodes. No dilated small bowel, free fluid, or free air. No mesenteric or retroperitoneal lymphadenopathy oth erwise seen. Normal appendix. No significant stool burden. Oral contrast progressed to the rectum. There maybe gina e mild wall thickening along the proximal to mid sigmoid colon, axial image 70 and coronal image 43. No surrounding inflammatory change. Bladder is collapsed. Prostate gland measures 3.6 cm wide. Small direct fat-containing left inguinal hernia though decreased in size from 02/02/2021 measuring ap proximately 4.0 x 2.0 cm, coronal image 44. No abnormal fluid collection in the pelvis or pelvic lymp hadenopathy. Bones: Mild degenerative change of the appendix. Scattered small periarticular sclerotic focus at the hips likely bone islands. No osseous destructive process. IMPRESSION: 1. THERE MAY BE SOME WALL THICKENING ALONG THE PROXIMAL TO MID SIGMOID COLON SUGGESTING A NONSPECIFIC MILD COLITIS. 2. SLIGHTLY DELAYED EXCRETION OF CONTRAST INTO THE BILATERAL RENAL COLLECTING SYSTEMS. CORRELATE WITH BUN/CREATININE TO EXCLUDE LU. 3. SMALL FAT-CONTAINING DIRECT LEFT INGUINAL HERNIA MEASURING 4 X 2 CM THOUGH NOTED TO BE SMALLER COM PARED TO 02/02/2021.
[2022-10-27 15:38] LABS: Basophils # (A) 0.04 X 10*3/uL (0.00-0.10); Basophils % (A) 0.4 %; Eosinophils # (A) 0.18 X 10*3/uL (0.04-0.35); Eosinophils % (A) 1.7 %; HCT 46.8 % (39.6-50.0); HGB 14.8 g/dL (13.0-17.0); Immature Grans, Automated 0.4 %; Lymphocytes # (A) 3.47 X 10*3/uL (0.90-5.00); Lymphocytes % (A) 32.9 %; MCH 26.4 pg (27.0-32.0); MCHC 31.6 g/dL (32.0-37.0); MCV 83.6 fL (80.0-97.0); Mean Platelet Volume 11.4 fL (9.5-12.2); Monocytes # (A) 1.07 X 10*3/uL (0.20-1.00); Monocytes % (A) 10.1 %; NRBC Per 100 WBC 0 /100 WBCS (0.0-0.0); Neutrophils # (A) 5.75 X 10*3/uL (1.80-7.70); Neutrophils % (A) 54.5 %; Platelet Count 311 X 10*3/uL (140-440); RDW 14.6 % (11.5-14.5); WBC 10.55 X 10*3/uL (4.50-10.00)
[2022-10-28 04:06] LABS: Lipase 31 U/L (14-60)
[2022-10-28 04:28] LABS: Bilirubin, Conjugated <0.20 mg/dL (0.20-0.40)
== END | disposition home or self-care (01) ==
LOC: RADCTMAIN 09:49
PROVIDERS: ATTEND Internal Medicine
DX: K40.90 Unilateral inguinal hernia, without obstruction or gangrene, not specified as recurrent (principal); R10.814 Left lower quadrant abdominal tenderness
CPT/HCPCS: 84439; 80053; 82248; 83690; 84443; 85025; 74177; 36415; Q9967 ×2

== ENCOUNTER → 2022-11-11 | Outpatient (CLI) | payer BC ==
[2022-11-11 22:47] LABS: Basophils # (A) 0.04 X 10*3/uL (0.00-0.10); Basophils % (A) 0.4 %; Eosinophils # (A) 0.23 X 10*3/uL (0.04-0.35); Eosinophils % (A) 2.1 %; HCT 46.4 % (39.6-50.0); HGB 14.4 g/dL (13.0-17.0); Immature Grans, Automated 0.3 %; Lymphocytes # (A) 3.31 X 10*3/uL (0.90-5.00); Lymphocytes % (A) 30.7 %; MCH 26.4 pg (27.0-32.0); MCV 85.1 fL (80.0-97.0); Mean Platelet Volume 11.6 fL (9.5-12.2); Monocytes # (A) 0.91 X 10*3/uL (0.20-1.00); Monocytes % (A) 8.4 %; NRBC Per 100 WBC 0 /100 WBCS (0.0-0.0); Neutrophils # (A) 6.27 X 10*3/uL (1.80-7.70); Neutrophils % (A) 58.1 %; Platelet Count 249 X 10*3/uL (140-440); RBC 5.45 X 10*6/uL (4.40-5.60); RDW 15.3 % (11.5-14.5); WBC 10.79 X 10*3/uL (4.50-10.00)
== END | disposition home or self-care (01) ==
LOC: LABWHC1 13:42
PROVIDERS: ATTEND Surgery
DX: Z01.812 Encounter for preprocedural laboratory examination (principal); K40.90 Unilateral inguinal hernia, without obstruction or gangrene, not specified as recurrent
CPT/HCPCS: 36415; 85025; 86850; 86900; 86901

== ENCOUNTER 2022-12-23 07:13 | Day surgery (SDC) | payer BC ==
[2022-12-17 14:17] VITALS: BMI 42.7
[~2022-12-23 07:13] MED LIST changes: -DEXAMETHASONE SOD PHOSPHATE 4 MG/ML 1 ML VIAL IV ONE; -HEPARIN SODIUM,PORCINE 5,000 UNIT/ML 1 ML VIAL SQ PRN; -ONDANSETRON 4 MG/2 ML VIAL IVP ONE; -SCOPOLAMINE 1.5MG/72HR PATCH TRANSDERM ONE; -ceFAZolin 3 GM in SODIUM CHLORIDE 0.9% 100 ML IVPB PRN
[2022-12-23] MEDS ORDERED: LACTATED RINGERS 1,000 ML IV ONE (07:40)
[2022-12-23 07:57] LABS: Glucose,Whole Blood 111 mg/dL (70-110)
[2022-12-23 07:58] VITALS: TEMP 97
[2022-12-23] MEDS ORDERED: PROPOFOL 10 MG/ML 20 ML VIAL IV ONE (08:07)
[2022-12-23] MEDS ORDERED: LIDOCAINE 2% INJ 20 MG/ML (2 ML VIAL) ONE (08:07)
--- NOTE | 2022-12-23 08:11 | P.GSHP ---
History of Present Illness H&P Date: 12/23/22 Chief Complaint: Colitis This a 47-year-old male with history of abdominal pain. Patient awake CAT scan is found evidence of inflammatory changes and sigmoid colon stress of colitis. Patient presents today for colonoscopy. Past Medical History Past Medical History: Diabetes Mellitus, Hyperlipidemia, Hypertension, Skin Disorder, Sleep Apnea/CPAP/BIPAP, Thyroid Disorder Additional Past Medical History / Comment(s): umbillical and inguinal hernia, Hard of hearing, BIPAP use, colitis, overactive thyroid, reports new onset generalized rash with puritis History of Any Multi-Drug Resistant Organisms: None Reported Past Surgical History: Hernia Repair, Orthopedic Surgery Additional Past Surgical History / Comment(s): Right ankle surgery X2, hernia repair b/l groins, rectal fissure, umbillical hernia repair Past Anesthesia/Blood Transfusion Reactions: No Reported Reaction Smoking Status: Former smoker - Past Family History Mother Family Medical History: No Reported History Medications and Allergies Home Medications Medication Instructions Recorded Confirmed Type Atorvastatin [Lipitor] 20 mg PO HS 11/12/22 12/23/22 History metFORMIN HCL 1,000 mg PO BID 11/12/22 12/23/22 History ramipriL 1.25 mg PO QAM 11/12/22 12/23/22 History Acetaminophen Tab [Tylenol] 650 mg PO Q6H PRN 12/17/22 12/23/22 History Allergies Allergy/AdvReac Type Severity Reaction Status Date / Time No Known Allergies Allergy Verified 12/23/22 07:42 Surgical - Exam Vital Signs Temp Pulse Resp BP Pulse Ox 97.0 F L 72 16 112/66 95 12/23/22 07:57 12/23/22 07:57 12/23/22 07:57 12/23/22 07:57 12/23/22 07:57 - General well developed, well nourished, no distress - Eyes PERRL - ENT normal pinna - Neck no masses - Respiratory normal expansion - Cardiovascular Rhythm: regular - Abdomen Abdomen: soft Results - Labs Abnormal Lab Results - Last 24 Hours (Table) 12/23/22 Range/Units 07:54 POC Glucose (mg/dL) 111 H (70-110) mg/dL Assessment and Plan Assessment: Abdominal pain Colitis We'll perform colonoscopy
--- NOTE | 2022-12-23 08:25 | P.OP ---
Date of Procedure: 12/23/22 Preoperative Diagnosis: Colitis Postoperative Diagnosis: Diverticulosis Procedure(s) Performed: Colonoscopy Anesthesia: MAC Surgeon: Uriel Espino Pathology: other (Sigmoid colon) Condition: stable Disposition: PACU Description of Procedure: The patient's placed on the endoscopy table in the lateral position. He received IV sedation. Digital rectal exam was performed. This revealed no abnormalities. The flexible colonoscope was then placed patient anus and passed throughout the entire colon. The ileocecal valve was visually is. The cecum, ascending and transverse colon appeared normal. The descending colon appeared normal. The scope was brought back and sigmoid and mild diverticular changes seen. Due to the patient's CAT scan with evidence of colitis since area a biopsies performed. The scope was withdrawn into the rectum and this appeared normal. Scope withdrawn for patient. There was no obvious colitis seen on endoscopy.
[2022-12-23] MEDS ORDERED: IV FLUID CONTINUATION 1,000 ML IV ONE (08:27)
[2022-12-23 08:30] VITALS: RESP 18
[2022-12-23 08:46] VITALS: BP 122/78; PULSE 65
== END 2022-12-23 08:59 | disposition home or self-care (01) ==
LOC: ORWHC2ENDO 07:13
PROVIDERS: ATTEND Surgery
DX: K52.9 Noninfective gastroenteritis and colitis, unspecified (principal); K57.30 Diverticulosis of large intestine without perforation or abscess without bleeding; E11.9 Type 2 diabetes mellitus without complications; E78.5 Hyperlipidemia, unspecified; G47.30 Sleep apnea, unspecified; I10 Essential (primary) hypertension; Z79.84 Long term (current) use of oral hypoglycemic drugs; Z87.891 Personal history of nicotine dependence
CPT/HCPCS: 88305; 45380; J2704; J2001

== ENCOUNTER → 2025-03-22 | Outpatient (CLI) | payer BC ==
--- NOTE | 2025-03-22 12:41 | XR ---
EXAMINATION TYPE: XR chest 2V DATE OF EXAM: 03/22/2025 12:12 PM COMPARISON: 03/16/2021 CLINICAL INDICATION: Male, 49 years old with history of N63.0 R07.89, TECHNIQUE: XR chest 2V view(s) obtained. FINDINGS: The heart size is normal. The pulmonary vasculature is normal. The lungs are clear. IMPRESSION: 1. No acute pulmonary process. [facility], , 03/22/2025 12:38 PM
--- NOTE | 2025-03-22 17:09 | XR ---
EXAMINATION TYPE: XR KUB DATE OF EXAM: 03/22/2025 12:17 PM COMPARISON: None. CLINICAL INDICATION: Male, 49 years old with history of R10.9 N63.0, TECHNIQUE: XR KUB view(s) obtained. FINDINGS: There is air within the stomach. Little bowel gas is present. No mass effect is evident. Psoas margins are normal. No organomegaly is present. IMPRESSION: 1. Unremarkable Abdomen [facility], , 03/22/2025 5:06 PM
--- NOTE | 2025-03-22 17:11 | XR ---
EXAMINATION TYPE: XR hand complete RT DATE OF EXAM: 03/22/2025 12:14 PM COMPARISON: None. CLINICAL INDICATION: Male, 49 years old with history of S69.91XA, pain TECHNIQUE: 3 view(s) obtained. FINDINGS: No acute fracture or dislocation evident. Soft tissues are normal. Joint spaces are preserved. Follow up exams can be performed 7-10 days from acute trauma for continued pain. IMPRESSION: 1. No acute osseous abnormality [facility], , 03/22/2025 5:08 PM
== END | disposition home or self-care (01) ==
LOC: RADXRMAIN 11:49
PROVIDERS: ATTEND Internal Medicine
DX: S69.91XA Unspecified injury of right wrist, hand and finger(s), initial encounter (principal); R10.9 Unspecified abdominal pain
CPT/HCPCS: 71046; 74018